=== PATIENT | male | born 1960 | race Caucasian/White ===

== ENCOUNTER 2020-05-07 16:43 | Emergency (ER) | payer OTHER ==
[~2020-05-07] VITALS: Ht 172.7 cm; Wt 70.8 kg
[2020-05-07 16:49] VITALS: Ht 172.7 cm; Wt 70.8 kg
[2020-05-07 17:25] LABS: BASOPHIL % 0.2 % (0-2); PLATELET COUNT 369 x10^3mcL (130-400); RED CELL DISTRIBUTION WIDTH 14.1 % (11.5-14.5)
[2020-05-07 17:40] LABS: ALKALINE PHOSPHATASE 143 U/L (46-116); ALT/SGPT 21 U/L (16-63); AST/SGOT 17 U/L (15-37); BILIRUBIN TOTAL 0.36 mg/dL (0.20-1.00); CALCIUM 8.8 mg/dL (8.5-10.1); CARBON DIOXIDE 28.2 mmol/L (21-32); CHLORIDE SERUM 98 mmol/L (98-107); GFR1 > 60 mL/min; POTASSIUM SERUM 3.5 mmol/L (3.5-5.1); SODIUM SERUM 133 mmol/L (136-145)
[2020-05-07 17:41] LABS: ALBUMIN 2.7 g/dL (3.4-5.0); TOTAL PROTEIN, SERUM 8.9 g/dL (6.4-8.2)
[2020-05-07 17:43] LABS: GLUCOSE SERUM 538 mg/dL (74-106)
[2020-05-07 20:40] LABS: microscopic required? YES; urine erythrocyte 1+ (NEGATIVE)
[2020-05-07 22:59] VITALS: BP 115/69
== END 2020-05-07 22:59 | disposition home or self-care (01) ==
LOC: ED 16:43
PROVIDERS: Student in an Organized Health Care Education/Training Program
DX: N50.89 Other specified disorders of the male genital organs (principal); M19.90 Unspecified osteoarthritis, unspecified site
CPT/HCPCS: 82962; J7030; Q0092